=== PATIENT | female | born 1980 | race American Indian/Alaskan Native ===

== ENCOUNTER 2017-06-10 02:50 | Emergency (ER) | payer SELFPAY ==
[2017-06-10 03:00] VITALS: BP 107/66
[2017-06-10 03:36] LABS: Basophils % (Auto) 0.5 % (0.0-1.8); Eosinophils % (Auto) 2.2 % (0.0-4.3); Hematocrit 36.2 % (30.3-42.9); Hemoglobin 12.5 gm/dl (10.1-14.3); Mean Corpuscular HGB Conc 34 % (30-34); Mean Corpuscular Hemoglobin 33 pg (28-32); Mean Corpuscular Volume 95 fl (79-97); Platelet Count 164 K/mm3 (140-440); Red Blood Count 3.83 M/mm3 (3.65-5.03); White Blood Count 5.4 K/mm3 (4.5-11.0)
[2017-06-10 03:44] LABS: Bilirubin,Urine NEG (Negative); Blood,Urine SM (Negative); Ketones,Urine NEG (Negative); Leukocyte Esterase,Urine NEG (Negative); Mucus,Urine FEW /HPF; Nitrite,Urine NEG (Negative); Protein,Urine <15 mg/dL mg/dL (Negative); Urobilinogen,Urine < 2.0 mg/dL (<2.0)
[2017-06-10 03:49] LABS: Anion Gap 20 mmol/L; BUN/Creatinine Ratio 26; Blood Urea Nitrogen 13 mg/dL (7-17); Calcium 9.7 mg/dL (8.4-10.2); Carbon Dioxide 22 mmol/L (22-30); Chloride 96.1 mmol/L (98-107); Glucose 81 mg/dL (65-100); Potassium 3.9 mmol/L (3.6-5.0); Sodium 134 mmol/L (137-145)
--- NOTE | 2017-06-10 05:01 | Emergency Department Report ---
ED Dizziness HPI - General Chief Complaint: Dizziness Stated Complaint: DIZZINESS Time Seen by Provider: 06/10/17 04:19 Source: patient Mode of arrival: Ambulatory Limitations: No Limitations - History of Present Illness Initial Comments: pt is a 37 y/o female , A0 who LMP 6 weeks ago who presents for intermittent dizziness with n/v for past 2 weeks, pt denies fever no chills no cough on head congestion, last episode or dizziness was yesterday am lasting approximate 1-2 minutes symptoms are relieved by po intake, pt endorses decreased po due to morning sickeness pt denies on presentation no hx cad, asthma, or vertigo, pt did recently fly [place] for [place] pt speakes fluent ken[place] and does not require dry cleaner hand for communication MD Complaint: dizziness Onset/Timin -: week(s) Timing: intermittent Description: sense of movement History of Same: Yes (with previous 6 yrs ago ) History of Trauma: No Severity: mild Improves With: rehydration, other (eating ) Worsens With: other (am) Associated Symptoms: denies: ataxia, chest pain, confusion, cough, diaphoresis, fever/chills, rash, seizure, shortness of breath, syncope, weakness - Related Data Home Medications Medication Instructions Recorded Confirmed Last Taken No Known Home Medications [No 06/10/17 06/10/17 Unknown Reported Home Medications] Allergies Allergy/AdvReac Type Severity Reaction Status Date / Time No Known Allergies Allergy Unverified 06/10/17 03:00 ED Review of Systems ROS: Stated complaint: DIZZINESS Other details as noted in HPI Constitutional: denies: chills, fever Eyes: denies: eye pain, eye discharge, vision change ENT: denies: ear pain, throat pain Respiratory: denies: cough, shortness of breath, wheezing Cardiovascular: denies: chest pain, palpitations Endocrine: no symptoms reported Gastrointestinal: denies: abdominal pain, nausea, diarrhea Genitourinary: denies: urgency, dysuria, discharge Musculoskeletal: denies: back pain, joint swelling, arthralgia Skin: denies: rash, lesions Neurological: denies: headache, weakness, numbness, paresthesias, confusion, abnormal gait, vertigo Psychiatric: anxiety (r/t labs results hcg ). denies: depression Hematological/Lymphatic: denies: easy bleeding, easy bruising ED Past Medical Hx - Past Medical History Previous Medical History?: No - Surgical History Past Surgical History?: No - Social History Smoking Status: Never Smoker Substance Use Type: None - Medications Home Medications: Home Medications Medication Instructions Recorded Confirmed Last Taken Type No Known Home Medications [No 06/10/17 06/10/17 Unknown History Reported Home Medications] ED Physical Exam - General Limitations: No Limitations General appearance: alert, in no apparent distress - Head Head exam: Present: atraumatic, normocephalic - Eye Eye exam: Present: normal appearance, PERRL, EOMI Pupils: Present: normal accommodation - ENT ENT exam: Present: normal orophraynx, mucous membranes moist, TM's normal bilaterally, normal external ear exam - Neck Neck exam: Present: normal inspection, full ROM. Absent: tenderness, lymphadenopathy, thyromegaly - Respiratory Respiratory exam: Present: normal lung sounds bilaterally. Absent: respiratory distress - Cardiovascular Cardiovascular Exam: Present: regular rate, normal rhythm, normal heart sounds. Absent: systolic murmur, diastolic murmur, rubs, gallop - GI/Abdominal GI/Abdominal exam: Present: soft, normal bowel sounds - Rectal Rectal exam: Present: deferred - Extremities Exam Extremities exam: Present: normal inspection, full ROM, normal capillary refill. Absent: tenderness - Back Exam Back exam: Present: normal inspection, full ROM. Absent: tenderness, CVA tenderness (R), CVA tenderness (L), muscle spasm - Neurological Exam Neurological exam: Present: alert, oriented X3, CN II-XII intact, normal gait, reflexes normal. Absent: motor sensory deficit - Psychiatric Psychiatric exam: Present: normal affect, normal mood - Skin Skin exam: Present: warm, dry, intact, normal color. Absent: rash ED Course Vital Signs 06/10/17 02:56 Temperature 97.6 F Pulse Rate 83 Respiratory 16 Rate Blood Pressure 107/66 O2 Sat by Pulse 100 Oximetry ED Medical Decision Making - Lab Data Result diagrams: 06/10/17 03:17 06/10/17 03:17 Laboratory Tests 06/10/17 06/10/17 06/10/17 03:17 03:17 03:17 WBC 5.4 RBC 3.83 Hgb 12.5 Hct 36.2 MCV 95 MCH 33 H MCHC 34 RDW 14.0 Plt Count 164 Lymph % (Auto) 39.1 H Nelson % (Auto) 8.0 H Eos % (Auto) 2.2 Baso % (Auto) 0.5 Lymph # 2.1 Nelson # 0.4 Eos # 0.1 Baso # 0.0 Seg Neutrophils % 50.2 Seg Neutrophils # 2.7 Sodium 134 L Potassium 3.9 Chloride 96.1 L Carbon Dioxide 22 Anion Gap 20 BUN 13 Creatinine 0.5 L Estimated GFR > 60 BUN/Creatinine Ratio 26 Glucose 81 Calcium 9.7 HCG, Qual Positive Urine Color Urine Turbidity Urine pH Ur Specific [place] Urine Protein Urine Glucose (UA) Urine Ketones Urine Blood Urine Nitrite Urine Bilirubin Urine Urobilinogen Ur Leukocyte Esterase Urine WBC (Auto) Urine RBC (Auto) U Epithel Cells (Auto) Hyaline Casts Urine Mucus 06/10/17 03:29 WBC RBC Hgb Hct MCV MCH MCHC RDW Plt Count Lymph % (Auto) Nelson % (Auto) Eos % (Auto) Baso % (Auto) Lymph # Nelson # Eos # Baso # Seg Neutrophils % Seg Neutrophils # Sodium Potassium Chloride Carbon Dioxide Anion Gap BUN Creatinine Estimated GFR BUN/Creatinine Ratio Glucose Calcium HCG, Qual Urine Color Straw Urine Turbidity Clear Urine pH 5.0 Ur Specific [place] 1.013 Urine Protein <15 mg/dl Urine Glucose (UA) Neg Urine Ketones Neg Urine Blood Sm Urine Nitrite Neg Urine Bilirubin Neg Urine Urobilinogen < 2.0 Ur Leukocyte Esterase Neg Urine WBC (Auto) 5.0 Urine RBC (Auto) 1.0 U Epithel Cells (Auto) 1.0 Hyaline Casts 1 Urine Mucus Few - Medical Decision Making pt is a 37 y/o female , A0 who LMP 6 weeks ago who presents for intermittent dizziness with n/v for past 2 weeks, pt denies fever no chills no cough on head congestion, last episode or dizziness was yesterday am lasting approximate 1-2 minutes symptoms are relieved by po intake, pt endorses decreased po due to morning sickeness pt denies on presentation no hx cad, asthma, or vertigo, pt did recently fly to [place] for [place]. pt speakes fluent kenyan and does not require dry cleaner hand for communication , exam is normal, neg halpike, ent exam normal no fever pt is tolerating po intake now without n/v no dizziness no light headedness no cp no sob, pt ambulated entire ed with symptoms, hcg: is pos, na:134, cbc, normal, ua: normal ,orthostatic bps normal, ekg: normal SR no ectopy, CV: S1 and S2, no MRG, lungs clear bilat no wheezing, lmp: 6 weeks plan: pt instructed no hydration and improtance of during , pt will follow with [facility] in 2-3 days given strict instructions to return to ed if symptoms worsen. pt continues to deny vaginal discharge, bleeding, no abdominal pain no cramping, no change in bowel habits, pt dc in stable condition at this time. Critical care attestation.: If time is entered above; I have spent that time in minutes in the direct care of this critically ill patient, excluding procedure time. ED Disposition Clinical Impression: Positive urine test, Dizziness, Nausea and vomiting during Disposition: DC-01 TO HOME OR SELFCARE Is pt being admited?: No Does the pt Need Aspirin: No Condition: Good Instructions: (ED), Morning Sickness (ED), Dizziness (ED) Additional Instructions: follow up with [facility] call today to setup appointment. Referrals: PRIMARY CARE, [Primary Care Provider] - 3-5 Days SHAHEED NELSON MD [Staff Physician] - 3-5 Days Forms: Work/School Release Form(ED) Time of Disposition: 05:11 Print Language: JORDANIAN
== END 2017-06-10 05:16 | disposition home or self-care (01) ==
LOC: ED 02:50
DX: O21.9 Vomiting of pregnancy, unspecified (principal); O26.891 Other specified pregnancy related conditions, first trimester; R42 Dizziness and giddiness; Z3A.00 Weeks of gestation of pregnancy not specified
CPT/HCPCS: 36415; 80048; 81001; 84703; 85025; 93005; 93010; 99283